=== PATIENT | female | born 1985 | race Caucasian/White ===

== ENCOUNTER 2016-10-22 11:28 | Emergency (ER) | payer OTHER ==
[~2016-10-22] VITALS: Ht 170.1 cm; Wt 157.9 kg
[~2016-10-22 11:28] MED LIST: AMOXICILLIN500 M2 PO; AMOXIL250 MG; AMOXIL500 MG PO; ANAPROX DS550 MG PO; ANUSOL-HC25 MG R; ATIVAN1 MG PO; AUGMENTIN 875 M1 TAB PO; AUGMENTIN 875875 MG PO; B/P MED PO; BACTRIM DS 8001 TA1 PO; CELEXA10 MG PO; CEPHALEXIN500 M1 PO; CIPROFLOXACIN500 MG PO; CLARITIN10 MG PO; COLACE100 MG PO; CYCLOBENZAPRINE5 M3 PO; CYMBALTA60 MG; DELSYM30 MG/5 ML PO; EFFEXOR XR75 M1 PO; EFFEXOR XR75 MG PO; EFFEXOR50 MG PO; FE-TABS325 MG PO; FLEXERIL10 MG PO; FLEXERIL5 MG PO; FLOMAX0.4 MG PO; HYDROCODONE BIT1 T11 PO; IBU800 MG PO; KEFLEX500 MG PO; LABETALOL HCL200 MG PO; LABETALOL HCL300 MG PO; LABETALOL200 MG PO; LEVOFLOXACIN500 MG PO; LISINOPRIL10 MG PO; LOMOTIL 0.025 M1 TA1 PO; MACROBID100 M1 PO; MEDROL DOSEPAK4 MG PO; MOOD STABALIZER; MOTRIN600 MG PO; MOTRIN800 MG PO; Motrin,Rufen800 MG PO; NAPROSYN500 MG PO; NEURONTIN300 MG PO; NKHM; NKHM PO; NORCO 325 MG-51 TAB PO; PERCOCET 325 MG1 TA1 PO; PERCOCET 325 MG1 TA2 PO; PERCOCET 325 MG1 TA7 PO; PHENERGAN25 M1 PO; PREDNICOT20 MG PO; PREDNISONE20 MG PO; PRILOSEC20 MG PO; PROAIR HFA0.09 MG/AC IH; PYRIDIUM200 MG PO; ROBITUSSIN-AC 160 ML PO; TESSALON PERLE200 MG PO; TOPAMAX2 MG; TRIMOX500 MG PO; ULTRAM50 MG PO; VICODIN 5/500 505 MG PO; VISTARIL25 MG PO; ZANTAC 150150 MG PO; ZANTAC150 MG PO; ZITHROMAX Z PA250 MG PO; ZOFRAN ODT4 MG SL; ZOFRAN4 MG PO; Zofran4 MG PO
[2016-10-22 12:08] LABS: BASO # 0.1 10*3/uL (0.0-0.1); BASO % 0.7 % (0.0-1.0); EOS # 0.2 10*3/uL (0.0-0.4); EOS % 3.2 % (1.0-4.0); HEMATOCRIT 41.8 % (37.0-47.0); HEMOGLOBIN 13.8 g/dl (12.0-16.0); LYMPH # 2.5 10*3/uL (1.3-4.4); LYMPH % 34.5 % (27.0-41.0); MEAN CELL VOLUME 86.2 fl (81.0-99.0); MEAN CORPUSCULAR HGB 28.5 pg (27.0-31.0); MEAN PLATELET VOLUME 10.1 fl (9.6-12.3); MONO # 0.4 10*3/uL (0.1-1.0); MONO % 4.8 % (3.0-9.0); NEUT # 4.1 10*3/uL (2.3-7.9); NEUT % 56.4 % (47.0-73.0); PLATELET COUNT AUTOMATED 283 10*3/uL (130-400); RED BLOOD COUNT 4.85 10*6/uL (4.10-5.10); RED CELL DISTRI WIDTH 12.3 % (0-14.5); WHITE BLOOD COUNT 7.3 10*3/uL (4.8-10.8)
[2016-10-22 12:32] LABS: BILIRUBIN NEGATIVE (NEGATIVE); BLOOD 1+ (NEGATIVE); CLARITY CLEAR (CLEAR); COLOR YELLOW (YELLOW); GLUCOSE NEGATIVE (NEGATIVE); KETONE NEGATIVE (NEGATIVE); LEUKO ESTERASE NEGATIVE (NEGATIVE); NITRITE NEGATIVE (NEGATIVE); PROTEIN NEGATIVE (NEGATIVE); SPECIFIC GRAVITY <= 1.005 (1.005-1.030); UROBILINOGEN 0.2 E.U./dl (0.2-1.0)
[2016-10-22 12:38] LABS: RBC 0-2 rbc/hpf (0-2); URINE REFLEX COMMENT YES (NO)
[2016-10-22 12:46] LABS: ALBUMIN 3.4 gm/dl (3.1-4.5); ALKALINE PHOSPHATASE 91 U/L (45-117); BILIRUBIN, TOTAL 0.4 mg/dl (0.2-1.0); BUN 11 mg/dl (7-24); CARBON DIOXIDE 32 mmol/L (21-32); CHLORIDE 103 mmol/L (98-107); EST GLOM FILT AFRICAN AMERICAN > 60 ml/min; GLUCOSE 88 mg/dL (65-99); POTASSIUM 4.4 mmol/L (3.5-5.1); SGOT/AST 20 IU/L (3-35); SGPT/ALT 30 U/L (12-78); SODIUM 140 mmol/L (136-145)
[2016-10-22] MEDS ORDERED: NAPROSYN500 MG PO (12:52)
== END 2016-10-22 13:14 | disposition home or self-care (01) ==
LOC: ED 11:28
PROVIDERS: Nurse Practitioner Family
DX: N94.6 Dysmenorrhea, unspecified (principal); F17.200 Nicotine dependence, unspecified, uncomplicated; Z90.49 Acquired absence of other specified parts of digestive tract; Z98.51 Tubal ligation status

== ENCOUNTER → 2017-01-03 | Outpatient (CLI) | payer OTHER | END | disposition home or self-care (01) | LOC: US 13:13 | DX: R31.9 Hematuria, unspecified (principal) ==

== ENCOUNTER → 2017-01-29 | Outpatient (CLI) | payer OTHER ==
[2017-01-29 12:31] LABS: ALBUMIN 3.1 gm/dl (3.1-4.5); ALKALINE PHOSPHATASE 99 U/L (45-117); BILIRUBIN, TOTAL 0.3 mg/dl (0.2-1.0); BUN 9 mg/dl (7-24); CARBON DIOXIDE 31 mmol/L (21-32); CHLORIDE 104 mmol/L (98-107); EST GLOM FILT AFRICAN AMERICAN > 60 ml/min; GLUCOSE 138 mg/dL (65-99); POTASSIUM 3.7 mmol/L (3.5-5.1); SGOT/AST 30 IU/L (3-35); SGPT/ALT 45 U/L (12-78); SODIUM 139 mmol/L (136-145); TOTAL PROTEIN 7.3 gm/dL (6.4-8.2)
== END | disposition home or self-care (01) ==
LOC: LAB 11:34
PROVIDERS: Internal Medicine
DX: R80.0 Isolated proteinuria (principal)

== ENCOUNTER 2017-09-10 09:43 | Emergency (ER) | payer OTHER ==
[~2017-09-10] VITALS: Ht 170.1 cm; Wt 161.5 kg
[2017-09-10] MEDS ORDERED: ULTRAM50 MG PO (12:51)
== END 2017-09-10 14:08 | disposition home or self-care (01) ==
LOC: ED 09:43
DX: S93.145A Subluxation of metatarsophalangeal joint of left lesser toe(s), initial encounter (principal); F17.200 Nicotine dependence, unspecified, uncomplicated; Z87.442 Personal history of urinary calculi; Z98.890 Other specified postprocedural states; Z98.51 Tubal ligation status; W22.8XXA Striking against or struck by other objects, initial encounter; Y93.39 Activity, other involving climbing, rappelling and jumping off; Y92.89 Other specified places as the place of occurrence of the external cause; Y99.9 Unspecified external cause status

== ENCOUNTER → 2017-09-26 | Outpatient (CLI) | payer OTHER | END | disposition home or self-care (01) | LOC: MAMMO 12:55 | DX: Z12.31 Encounter for screening mammogram for malignant neoplasm of breast (principal) ==

== ENCOUNTER 2018-02-03 22:05 | Emergency (ER) | payer OTHER ==
[~2018-02-03] VITALS: Ht 170.1 cm; Wt 175.1 kg
[2018-02-03 23:10] LABS: BASO # 0.1 10*3/uL (0.0-0.1); BASO % 0.7 % (0.0-1.0); EOS # 0.2 10*3/uL (0.0-0.4); EOS % 2.3 % (1.0-4.0); HEMATOCRIT 43.2 % (37.0-47.0); HEMOGLOBIN 14.1 g/dl (12.0-16.0); LYMPH # 2.8 10*3/uL (1.3-4.4); LYMPH % 31.9 % (27.0-41.0); MEAN CELL VOLUME 88.3 fl (81.0-99.0); MEAN CORPUSCULAR HGB 28.8 pg (27.0-31.0); MEAN CORPUSCULAR HGB CONC 32.6 g/dl (33.0-37.0); MEAN PLATELET VOLUME 10.8 fl (9.6-12.3); MONO # 0.4 10*3/uL (0.1-1.0); MONO % 4.8 % (3.0-9.0); NEUT # 5.2 10*3/uL (2.3-7.9); NEUT % 60.1 % (47.0-73.0); PLATELET COUNT AUTOMATED 279 10*3/uL (130-400); RED BLOOD COUNT 4.89 10*6/uL (4.10-5.10); RED CELL DISTRI WIDTH 12.1 % (0-14.5); WHITE BLOOD COUNT 8.7 10*3/uL (4.8-10.8)
[2018-02-03 23:24] LABS: ACT PARTIAL THROMBO TIME 23.9 SECONDS (20.8-31.5); INTERNATIONAL NORM RATIO 0.9 (2.0-3.5)
[2018-02-03 23:27] LABS: ALBUMIN 3.4 gm/dl (3.1-4.5); ALKALINE PHOSPHATASE 94 U/L (45-117); BUN 13 mg/dl (7-24); CHLORIDE 101 mmol/L (98-107); CREATININE 0.78 mg/dL (0.55-1.02); SGOT/AST 39 IU/L (3-35); SGPT/ALT 39 U/L (12-78); SODIUM 140 mmol/L (136-145); TOTAL PROTEIN 7.5 gm/dL (6.4-8.2)
[2018-02-03 23:29] LABS: BETA-HCG, QUANT < 1.0 mIU/mL (1-3); TROPONIN I < 0.015 ng/ml (<0.045)
== END 2018-02-04 00:14 | disposition home or self-care (01) ==
LOC: ED 22:05
PROVIDERS: Student in an Organized Health Care Education/Training Program
DX: M79.661 Pain in right lower leg (principal); M79.662 Pain in left lower leg; R07.9 Chest pain, unspecified

== ENCOUNTER 2018-08-21 16:03 | Emergency (ER) | payer OTHER ==
[~2018-08-21] VITALS: Ht 170.1 cm; Wt 162.8 kg
== END 2018-08-21 18:14 | disposition home or self-care (01) ==
LOC: ED 16:03
DX: S39.012A Strain of muscle, fascia and tendon of lower back, initial encounter (principal); S80.01XA Contusion of right knee, initial encounter; I83.90 Asymptomatic varicose veins of unspecified lower extremity; F17.200 Nicotine dependence, unspecified, uncomplicated; Z87.442 Personal history of urinary calculi; Z90.49 Acquired absence of other specified parts of digestive tract; W00.2XXA Other fall from one level to another due to ice and snow, initial encounter; Y93.01 Activity, walking, marching and hiking; Y92.128 Other place in nursing home as the place of occurrence of the external cause; Y99.8 Other external cause status

== ENCOUNTER → 2019-01-15 | Outpatient (CLI) | payer OTHER | END | disposition home or self-care (01) | LOC: MAMMO 12-02 16:20 | DX: Z12.31 Encounter for screening mammogram for malignant neoplasm of breast (principal) ==

== ENCOUNTER → 2019-01-22 | Outpatient (CLI) | payer SELFPAY | END | disposition home or self-care (01) | LOC: MAMMO 10:31 | DX: R92.8 Other abnormal and inconclusive findings on diagnostic imaging of breast (principal) ==

== ENCOUNTER 2019-06-29 11:15 | Emergency (ER) | payer SELFPAY ==
[~2019-06-29] VITALS: Ht 170.1 cm; Wt 163.3 kg
[2019-06-29 11:55] LABS: BILIRUBIN NEGATIVE (NEGATIVE); BLOOD NEGATIVE (NEGATIVE); CLARITY CLEAR (CLEAR); COLOR YELLOW (YELLOW); GLUCOSE NEGATIVE (NEGATIVE); KETONE NEGATIVE (NEGATIVE); LEUKO ESTERASE NEGATIVE (NEGATIVE); NITRITE NEGATIVE (NEGATIVE); SPECIFIC GRAVITY 1.025 (1.005-1.030); UROBILINOGEN 0.2 E.U./dl (0.2-1.0)
[2019-06-29 12:07] LABS: BACTERIA 2+; WBC 0-2 wbc/hpf (0-5)
[2019-06-29 12:14] LABS: BASO # 0.1 10*3/uL (0.0-0.1); BASO % 0.8 % (0.0-1.0); EOS # 0.3 10*3/uL (0.0-0.4); EOS % 3.4 % (1.0-4.0); HEMATOCRIT 41.7 % (37.0-47.0); HEMOGLOBIN 13.5 g/dl (12.0-16.0); LYMPH # 2.5 10*3/uL (1.3-4.4); LYMPH % 34.1 % (27.0-41.0); MEAN CELL VOLUME 88.2 fl (81.0-99.0); MEAN CORPUSCULAR HGB 28.5 pg (27.0-31.0); MEAN CORPUSCULAR HGB CONC 32.4 g/dl (33.0-37.0); MEAN PLATELET VOLUME 10.6 fl (9.6-12.3); MONO # 0.4 10*3/uL (0.1-1.0); MONO % 4.9 % (3.0-9.0); NEUT # 4.2 10*3/uL (2.3-7.9); NEUT % 56.5 % (47.0-73.0); PLATELET COUNT AUTOMATED 268 10*3/uL (130-400); RED BLOOD COUNT 4.73 10*6/uL (4.10-5.10); RED CELL DISTRI WIDTH 12.1 % (0-14.5); WHITE BLOOD COUNT 7.4 10*3/uL (4.8-10.8)
[2019-06-29 12:28] LABS: ALKALINE PHOSPHATASE 97 U/L (45-117); BUN 9 mg/dl (7-24); CHLORIDE 105 mmol/L (98-107); CREATININE 0.79 mg/dL (0.55-1.02); LIPASE 98 U/L (73-393); SGOT/AST 16 IU/L (3-35); SGPT/ALT 33 U/L (12-78); SODIUM 139 mmol/L (136-145); TOTAL PROTEIN 7.2 gm/dL (6.4-8.2)
[2019-06-29 12:32] LABS: TROPONIN I < 0.015 ng/ml (<0.045)
[2019-06-29 12:33] LABS: ACT PARTIAL THROMBO TIME 28.1 SECONDS (20.0-32.1); INTERNATIONAL NORM RATIO 0.9 (2.0-3.5)
== END 2019-06-29 13:15 | disposition home or self-care (01) ==
LOC: ED 11:15
PROVIDERS: Emergency Medicine
DX: R10.32 Left lower quadrant pain (principal); K76.0 Fatty (change of) liver, not elsewhere classified; M54.5 Low back pain; E66.9 Obesity, unspecified; F17.200 Nicotine dependence, unspecified, uncomplicated; Z90.49 Acquired absence of other specified parts of digestive tract; Z79.899 Other long term (current) drug therapy; Z87.442 Personal history of urinary calculi

== ENCOUNTER → 2020-03-29 | Outpatient (CLI) | payer OTHER | END | disposition home or self-care (01) | LOC: MAMMO 13:18 | DX: R92.8 Other abnormal and inconclusive findings on diagnostic imaging of breast (principal) ==

== ENCOUNTER 2020-04-26 15:08 | Emergency (ER) | payer OTHER ==
[~2020-04-26] VITALS: Ht 170.1 cm; Wt 163.3 kg
[2020-04-26 16:09] LABS: BASO # 0.1 10*3/uL (0.0-0.1); BASO % 0.8 % (0.0-1.0); EOS # 0.2 10*3/uL (0.0-0.4); EOS % 2.3 % (1.0-4.0); HEMATOCRIT 42.2 % (37.0-47.0); LYMPH % 25.1 % (27.0-41.0); MEAN CELL VOLUME 89.4 fl (81.0-99.0); MEAN CORPUSCULAR HGB 28.6 pg (27.0-31.0); MEAN PLATELET VOLUME 10.8 fl (9.6-12.3); MONO # 0.3 10*3/uL (0.1-1.0); MONO % 3.4 % (3.0-9.0); NEUT # 5.3 10*3/uL (2.3-7.9); PLATELET COUNT AUTOMATED 250 10*3/uL (130-400); RED BLOOD COUNT 4.72 10*6/uL (4.10-5.10); RED CELL DISTRI WIDTH 12.3 % (0-14.5); WHITE BLOOD COUNT 7.8 10*3/uL (4.8-10.8)
[2020-04-26 16:24] LABS: ALKALINE PHOSPHATASE 89 U/L (45-117); BUN 9 mg/dl (7-24); CHLORIDE 108 mmol/L (98-107); CREATININE 0.78 mg/dL (0.55-1.02); LIPASE 85 U/L (73-393); SGOT/AST 39 IU/L (3-35); SGPT/ALT 49 U/L (12-78); SODIUM 139 mmol/L (136-145); TOTAL PROTEIN 7.2 gm/dL (6.4-8.2)
[2020-04-26 16:35] LABS: BILIRUBIN NEGATIVE (NEGATIVE); BLOOD NEGATIVE (NEGATIVE); CLARITY CLEAR (CLEAR); COLOR YELLOW (YELLOW); GLUCOSE NEGATIVE (NEGATIVE); KETONE NEGATIVE (NEGATIVE); LEUKO ESTERASE NEGATIVE (NEGATIVE); NITRITE NEGATIVE (NEGATIVE); SPECIFIC GRAVITY 1.025 (1.005-1.030); UROBILINOGEN 0.2 E.U./dl (0.2-1.0)
[2020-04-26 16:37] LABS: BACTERIA TRACE; RBC 0-2 rbc/hpf (0-2)
[2020-04-26] MEDS ORDERED: DICYCLOMINE HCL10 MG PO (18:03)
[2020-04-26] MEDS ORDERED: OMEPRAZOLE10 MG PO (18:03)
== END 2020-04-26 18:51 | disposition home or self-care (01) ==
LOC: ED 15:08
PROVIDERS: Physician Assistant
DX: R10.13 Epigastric pain (principal); F32.9 Major depressive disorder, single episode, unspecified; I10 Essential (primary) hypertension; F17.200 Nicotine dependence, unspecified, uncomplicated; Z79.899 Other long term (current) drug therapy

== ENCOUNTER → 2020-08-23 | Outpatient (CLI) | payer OTHER ==
[~2020-08-23] MED LIST changes: +DICYCLOMINE HCL10 MG PO; +OMEPRAZOLE10 MG PO
== END | disposition home or self-care (01) ==
LOC: COVID19 11:42
PROVIDERS: ATTEND Internal Medicine
DX: Z20.828 Contact with and (suspected) exposure to other viral communicable diseases (principal)

== ENCOUNTER → 2020-10-25 | Outpatient (CLI) | payer OTHER | END | disposition home or self-care (01) | LOC: RAD 11:04 | PROVIDERS: ATTEND Internal Medicine | DX: M25.521 Pain in right elbow (principal) ==

== ENCOUNTER 2021-06-10 18:27 | Emergency (ER) | payer OTHER | END 2021-06-10 22:39 | disposition left against medical advice (07) | LOC: ED 18:27 | DX: M79.673 Pain in unspecified foot (principal); Z53.21 Procedure and treatment not carried out due to patient leaving prior to being seen by health care provider ==

== ENCOUNTER 2021-07-20 23:11 | Emergency (ER) | payer OTHER ==
[~2021-07-20] VITALS: Ht 167.6 cm; Wt 167.4 kg
[2021-07-20] MEDS ORDERED: CEPHALEXIN500 M1 PO (23:53)
[2021-07-20] MEDS ORDERED: NAPROSYN500 MG PO (23:53)
== END 2021-07-21 00:32 | disposition home or self-care (01) ==
LOC: ED 23:11
DX: L98.9 Disorder of the skin and subcutaneous tissue, unspecified (principal)

== ENCOUNTER → 2021-07-21 | Outpatient (CLI) | payer OTHER | END | disposition home or self-care (01) | LOC: US 08:30 | PROVIDERS: ATTEND Emergency Medicine | DX: I80.02 Phlebitis and thrombophlebitis of superficial vessels of left lower extremity (principal) ==

== ENCOUNTER → 2021-12-26 | Outpatient (CLI) | payer OTHER ==
[2021-12-26 15:34] LABS: ALKALINE PHOSPHATASE 120 U/L (45-117); BUN 11 mg/dl (7-24); CHLORIDE 103 mmol/L (98-107); CREATININE 0.79 mg/dL (0.55-1.02); POTASSIUM 4.3 mmol/L (3.5-5.1); SGOT/AST 25 IU/L (3-35); SGPT/ALT 29 U/L (12-78); SODIUM 136 mmol/L (136-145); TOTAL PROTEIN 8.4 gm/dL (6.4-8.2); TRIGLYCERIDES 85 mg/dl (<150)
[2021-12-26 16:01] LABS: CHOLESTEROL 105 mg/dL (<200); FREE T4 1.32 ng/dl (0.76-1.46); LDL CHOLESTEROL 53 mg/dL (9-159)
[2021-12-27 13:07] LABS: HEP B CORE AB, IGM Negative (Negative); HEPATITIS B SURFACE AG Negative (Negative); HEPATITIS C VIRUS ANTIBODY 0.2 s/co (0.0-0.9)
== END | disposition home or self-care (01) ==
LOC: LAB 14:30
PROVIDERS: ATTEND Internal Medicine
DX: R73.9 Hyperglycemia, unspecified (principal); R74.01 Elevation of levels of liver transaminase levels; E55.9 Vitamin D deficiency, unspecified; I10 Essential (primary) hypertension

== ENCOUNTER → 2023-01-14 | Day surgery (SDC) | payer OTHER ==
[~2023-01-14] VITALS: Ht 170.1 cm; Wt 163.3 kg
[~2023-01-14] MED LIST changes: +ADDERALL XR 3030 MG PO; +HYDROCODONE-AC1 EAC1 PO; +TRULICITY4.5 MG/0.5 SQ
[2023-01-14 07:54] VITALS: BP 130/74
[2023-01-14 08:52] VITALS: BP 128/65
[2023-01-14 09:07] VITALS: BP 120/61
[2023-01-14 09:20] VITALS: BP 131/63
== END | disposition home or self-care (01) ==
LOC: SDC 01-10 09:30
PROVIDERS: ATTEND Surgery
DX: L72.11 Pilar cyst (principal); F41.9 Anxiety disorder, unspecified; F32.A Depression, unspecified; I10 Essential (primary) hypertension; D48.9 Neoplasm of uncertain behavior, unspecified; E66.9 Obesity, unspecified; F17.210 Nicotine dependence, cigarettes, uncomplicated; Z90.49 Acquired absence of other specified parts of digestive tract; Z79.899 Other long term (current) drug therapy; Z98.890 Other specified postprocedural states; Z68.44 Body mass index [BMI] 60.0-69.9, adult

== ENCOUNTER → 2023-08-29 | Outpatient (CLI) | payer OTHER | END | disposition home or self-care (01) | LOC: MAMMO 08:00 | PROVIDERS: ATTEND Internal Medicine | DX: N60.01 Solitary cyst of right breast (principal); N64.4 Mastodynia ==

== ENCOUNTER 2024-10-04 18:15 | Emergency (ER) | payer OTHER ==
[~2024-10-04] VITALS: Ht 170.1 cm; Wt 165.1 kg
[2024-10-04] MEDS ORDERED: ACETAMINOPHEN 325 MG TAB PO ONE (19:15)
== END 2024-10-04 20:56 | disposition home or self-care (01) ==
LOC: ED 18:15
DX: S93.401A Sprain of unspecified ligament of right ankle, initial encounter (principal); E11.9 Type 2 diabetes mellitus without complications; I10 Essential (primary) hypertension; D64.9 Anemia, unspecified; F32.A Depression, unspecified; Z90.49 Acquired absence of other specified parts of digestive tract; Z98.51 Tubal ligation status; Z98.890 Other specified postprocedural states; W00.0XXA Fall on same level due to ice and snow, initial encounter; Y93.89 Activity, other specified; Y92.89 Other specified places as the place of occurrence of the external cause; Y99.8 Other external cause status